=== PATIENT | female | born 1965 | race Caucasian/White ===

== ENCOUNTER 2017-10-22 14:46 | Emergency (ER) | payer MEDICAID, OTHER ==
[~2017-10-22] VITALS: Ht 162.6 cm; Wt 74.4 kg
[2017-10-22 14:48] VITALS: BP 129/77; PULSE 76; RESP 16; TEMP 98.3; O2SAT 100
[2017-10-22] MEDS ORDERED: ASPI-183 PO (15:06)
[2017-10-22] MEDS ORDERED: SODIUM CHLORIDE 0.9% FLUSH 10 ML FLUSH IVF PRN (15:15)
--- NOTE | 2017-10-22 15:22 | PD ---
HPI Chief Complaint: Dizziness Time Seen by Provider: 15:03 Travel History International Travel<30 days: No Contact w/Intl Traveler<30days: No Traveled to known affect area: No History of Present Illness HPI The patient is a 52-year-old female who presents to the emergency department for multiple complaints. The patient states she suffered a stroke 2 years ago when she was living in [place], [place]. The patient states she has full disability from her CVA and left with residual right sided weakness which has progressively gotten better since the stroke. She has been ambulatory. However, she does note intermittent dizziness for the last 2 years. She states she occasionally feels a sidhu from the back of the head to the front of the head, becomes lightheaded, dizzy, but denies any focal deficits with the intermittent dizziness. She does note the onset was 2 years ago after the stroke. She has not followed up with her primary physician in regards to intermittent dizziness. She denies any orthostatic changes, vertigo , chest pain, palpitations, shortness of breath, nausea, vomiting, or weakness. She also complains of superficial varicosities to lower extremities, does state her mother has had similar varicosities as well. She also notes a small red bump on the top of the right leg just inferior to the knee over the tibial tuberosity and feels like there may be a small cyst or lump over the affected area. She also thinks she may have been bit by an insect of the anterior aspect the left lower tibia where there is some erythema, however, this has moved to the medial aspect of the leg. She denies any significant edema to lower extremities and denies any recent travel, hospitalizations, or surgeries. She denies any history of previous DVT or PE. Symptoms are mild to moderate. PFSH Past Medical History Cerebrovascular Accident: Yes (2016) Influenza Vaccination: No ?: Not : 4 Para: 3 Past Surgical History Section: Yes (X3) Ear Surgery: Yes (WHEN PT WAS F[age]) Social History Alcohol Use: Yes (OCCAS) Tobacco Use: Yes (1 PPD CUTTING BACK) Substance Use: Yes Allergies-Medications (Allergen,Severity, Reaction): Coded Allergies: No Known Allergies (Unverified , 10/22/17) Reported Meds & Prescriptions Reported Meds & Active Scripts Active Reported Aspirin 325 Mg Tab 325 Mg PO DAILY Review of Systems Except as stated in HPI: all other systems reviewed are Neg Eyes: No: Blurred Vision HENT: Positive: Lightheadedness, No: Headaches, Vertigo Cardiovascular: No: Chest Pain or Discomfort, Palpitations, Irregular Rhythm, Tachycardia, Diaphoresis Respiratory: No: Shortness of Breath Gastrointestinal: No: Nausea, Vomiting, Abdominal Pain Musculoskeletal: Positive: Pain Skin: Positive Lumps, Positive Other (As noted in the history of present illness) Neurologic: Positive: Dizziness, Focal Abnormalities (History of right-sided weakness residual from CVA 2 years ago, denies any acute changes), No: Weakness , Change in Mentation, Slurred Speech, Paresthesia, Sensory Disturbance Endocrine: No: Heat Intolerance, Cold Intolerance Physical Exam Narrative GENERAL: Awake, alert, nontoxic-appearing 52-year-old female who appears her stated age and is in no acute respiratory distress. SKIN: Focused skin assessment warm/dry. HEAD: Atraumatic. Normocephalic. EYES: Pupils equal and round. Pupils are 3 mm bilateral and reactive. EOMs are intact. ENT: No nasal bleeding or discharge. Mucous membranes pink and moist. NECK: Trachea midline. No JVD. CARDIOVASCULAR: Regular rate and rhythm. No murmur appreciated. Heart rate in 70s. RESPIRATORY: No accessory muscle use. Clear to auscultation. Breath sounds equal bilaterally. GASTROINTESTINAL: Abdomen soft, non-tender, nondistended. MUSCULOSKELETAL: No obvious deformities. No clubbing. No cyanosis. No edema. Superficial varicosities noted to the left and right foot. The calves are soft , negative Homans sign. Small erythematous area 1 cm diameter of the anterior aspect the lower left tibia. Small 1 cm circular cystlike area over the right tibial tuberosity that appears to be mobile over the affected area, slightly painful, but no drainage. NEUROLOGICAL: Awake and alert. No obvious cranial nerve deficits. Motor grossly within normal limits. Normal speech. PSYCHIATRIC: Appropriate mood and affect; insight and judgment normal. Data Data Last Documented VS Vital Signs Date Time Temp Pulse Resp B/P (MAP) Pulse Ox O2 Delivery O2 Flow Rate FiO2 10/22/17 15:37 65 18 104/70 (81) 66 18 109/73 (85) 89 18 99/71 (80) 10/22/17 15:32 98 Room Air 10/22/17 14:48 98.3 Orders Orders Electrocardiogram (10/22/17 15:13) Complete Blood Count With Diff (10/22/17 15:13) Comprehensive Metabolic Panel (10/22/17 15:13) Magnesium (Mg) (10/22/17 15:13) Ecg Monitoring (10/22/17 15:13) Iv Access Insert/Monitor (10/22/17 15:13) Oximetry (10/22/17 15:13) Sodium Chloride 0.9% Flush (Ns Flush) (10/22/17 15:15) Orthostatic Vital Signs (10/22/17 15:13) Sodium Chlor 0.9% 1000 Ml Inj (Ns 1000 M (10/22/17 15:45) Labs Laboratory Tests Test 10/22/17 15:25 White Blood Count 6.8 TH/MM3 Red Blood Count 4.66 MIL/MM3 Hemoglobin 13.8 GM/DL Hematocrit 41.0 % Mean Corpuscular Volume 87.9 FL Mean Corpuscular Hemoglobin 29.5 PG Mean Corpuscular Hemoglobin Concent 33.5 % Red Cell Distribution Width 12.4 % Platelet Count 334 TH/MM3 Mean Platelet Volume 7.8 FL Neutrophils (%) (Auto) 44.5 % Lymphocytes (%) (Auto) 45.4 % Monocytes (%) (Auto) 7.0 % Eosinophils (%) (Auto) 2.5 % Basophils (%) (Auto) 0.6 % Neutrophils # (Auto) 3.0 TH/MM3 Lymphocytes # (Auto) 3.1 TH/MM3 Monocytes # (Auto) 0.5 TH/MM3 Eosinophils # (Auto) 0.2 TH/MM3 Basophils # (Auto) 0.0 TH/MM3 CBC Comment DIFF FINAL Differential Comment Blood Urea Nitrogen 8 MG/DL Creatinine 0.69 MG/DL Random Glucose 89 MG/DL Total Protein 7.8 GM/DL Albumin 3.9 GM/DL Calcium Level 9.0 MG/DL Magnesium Level 2.3 MG/DL Alkaline Phosphatase 95 U/L Aspartate Amino Transf (AST/SGOT) 13 U/L Alanine Aminotransferase (ALT/SGPT) 18 U/L Total Bilirubin 0.3 MG/DL Sodium Level 140 MEQ/L Potassium Level 3.5 MEQ/L Chloride Level 105 MEQ/L Carbon Dioxide Level 30.8 MEQ/L Anion Gap 4 MEQ/L Estimat Glomerular Filtration Rate 89 ML/MIN [facility] Medical Decision Making Medical Screen Exam Complete: Yes Emergency Medical Condition: Yes Medical Record Reviewed: Yes Interpretation(s) EKG reveals normal sinus rhythm with a rate of 64. No ischemic changes or ectopy noted. Laboratory Tests Test 10/22/17 15:25 White Blood Count 6.8 TH/MM3 Red Blood Count 4.66 MIL/MM3 Hemoglobin 13.8 GM/DL Hematocrit 41.0 % Mean Corpuscular Volume 87.9 FL Mean Corpuscular Hemoglobin 29.5 PG Mean Corpuscular Hemoglobin Concent 33.5 % Red Cell Distribution Width 12.4 % Platelet Count 334 TH/MM3 Mean Platelet Volume 7.8 FL Neutrophils (%) (Auto) 44.5 % Lymphocytes (%) (Auto) 45.4 % Monocytes (%) (Auto) 7.0 % Eosinophils (%) (Auto) 2.5 % Basophils (%) (Auto) 0.6 % Neutrophils # (Auto) 3.0 TH/MM3 Lymphocytes # (Auto) 3.1 TH/MM3 Monocytes # (Auto) 0.5 TH/MM3 Eosinophils # (Auto) 0.2 TH/MM3 Basophils # (Auto) 0.0 TH/MM3 CBC Comment DIFF FINAL Differential Comment Blood Urea Nitrogen 8 MG/DL Creatinine 0.69 MG/DL Random Glucose 89 MG/DL Total Protein 7.8 GM/DL Albumin 3.9 GM/DL Calcium Level 9.0 MG/DL Magnesium Level 2.3 MG/DL Alkaline Phosphatase 95 U/L Aspartate Amino Transf (AST/SGOT) 13 U/L Alanine Aminotransferase (ALT/SGPT) 18 U/L Total Bilirubin 0.3 MG/DL Sodium Level 140 MEQ/L Potassium Level 3.5 MEQ/L Chloride Level 105 MEQ/L Carbon Dioxide Level 30.8 MEQ/L Anion Gap 4 MEQ/L Estimat Glomerular Filtration Rate 89 ML/MIN Differential Diagnosis Differential diagnosis includes superficial varicosities, post CVA dizziness, orthostatic dizziness, hypocalcemia, hyponatremia, dehydration, arrhythmia, lipoma, cyst. Narrative Course IV was established, labs are drawn and sent, and the patient was placed on cardiac telemetry monitoring and continuous pulse oximetry monitoring. EKG was ordered and interpreted. Orthostatic vital signs were obtained. Orthostatic vital signs do reveal an increased heart rate of greater than 20 bpm with standing, however, systolic only fell from 106-99. Therefore, patient was administered 1 L of IV fluids. CBC and CMP are unremarkable. I did review the EMR, the patient has one previous visit in March 2017 for alcohol intoxication with an alcohol level of 294 at that time. No evidence of intoxication today. The patient is advised to follow-up with a primary physician on an outpatient basis. Return if symptoms worsen or progress. Diagnosis Primary Impression: Dizziness Additional Impression: Leg pain Qualified Codes: M79.604 - Pain in right leg; M79.605 - Pain in left leg Patient Instructions: General Instructions Additional Instructions: Please provide the patient a copy of her labs and EKG at discharge. Follow-up with a primary physician. Med/Other Pt SpecificInfo: No Change to Meds Disposition: 01 DISCHARGE HOME Condition: Stable Michele Chaney MD October 22, 2017 15:22
[2017-10-22 15:32] VITALS: RESP 18; O2SAT 98
[2017-10-22 15:32] LABS: BASOPHIL % 0.6 % (0.0-2.0); EOSINOPHIL # 0.2 TH/MM3 (0-0.4); EOSINOPHIL % 2.5 % (0.0-4.0); HEMOGLOBIN 13.8 GM/DL (11.6-15.3); LYMPH % 45.4 % (9.0-44.0); LYMPHOCYTE # 3.1 TH/MM3 (1.0-4.8); MEAN CELL VOLUME 87.9 FL (80.0-100.0); MEAN CORPUSCULAR HEMOGLOBIN 29.5 PG (27.0-34.0); MEAN CORPUSCULAR HGB CONC 33.5 % (32.0-36.0); MEAN PLATELET VOLUME 7.8 FL (7.0-11.0); MONOCYTE # 0.5 TH/MM3 (0-0.9); NEUT % 44.5 % (16.0-70.0); PLATELET COUNT 334 TH/MM3 (150-450); RED BLOOD COUNT 4.66 MIL/MM3 (4.00-5.30); RED CELL DISTRIBUTION WIDTH 12.4 % (11.6-17.2); WHITE BLOOD COUNT 6.8 TH/MM3 (4.0-11.0)
[2017-10-22 15:37] VITALS: BP_SYST 104; BP_SYST 109; BP_SYST 99; BP_DIAS 70; BP_DIAS 71; BP_DIAS 73; RESP 18
[2017-10-22 15:43] LABS: CHLORIDE 105 MEQ/L (98-107); SODIUM (NA) 140 MEQ/L (136-145)
[2017-10-22] MEDS ORDERED: SODIUM CHLOR 0.9% 1000 ML INJ 1,000 ML IV ONE (15:45)
[2017-10-22 15:46] LABS: ALBUMIN 3.9 GM/DL (3.4-5.0)
[2017-10-22 15:47] LABS: BICARBONATE 30.8 MEQ/L (21.0-32.0); BLOOD UREA NITROGEN 8 MG/DL (7-18); GLUCOSE,RANDOM 89 MG/DL (74-106); MAGNESIUM 2.3 MG/DL (1.5-2.5)
[2017-10-22 15:49] LABS: ALT (GPT) 18 U/L (10-53)
[2017-10-22 15:50] LABS: AST (GOT) 13 U/L (15-37); CREATININE 0.69 MG/DL (0.50-1.00); GLOMERULAR FILTRATION RATE 89 ML/MIN (>89)
[2017-10-22 15:51] LABS: TOTAL BILIRUBIN ADULT 0.3 MG/DL (0.2-1.0); TOTAL PROTEIN 7.8 GM/DL (6.4-8.2)
[2017-10-22 15:52] LABS: ALKALINE PHOSPHATASE 95 U/L (45-117)
[2017-10-22 16:11] VITALS: BP 104/71; PULSE 66; RESP 16; O2SAT 99
--- NOTE | 2017-10-24 12:04 | EKG ---
Date Performed: 10/22/2017 Time Performed: 15:41:58 PTAGE: 52 years EKG: Sinus rhythm NORMAL ECG NO PREVIOUS TRACING DOCTOR: Cynthia Schumacher Interpretating Date/Time 10/24/2017 11:54:32
== END 2017-10-22 16:20 | disposition home or self-care (01) ==
LOC: PHED 14:46
DX: R42 Dizziness and giddiness (principal); M79.604 Pain in right leg; M79.605 Pain in left leg; I83.92 Asymptomatic varicose veins of left lower extremity; I69.951 Hemiplegia and hemiparesis following unspecified cerebrovascular disease affecting right dominant side; F17.200 Nicotine dependence, unspecified, uncomplicated; Z79.82 Long term (current) use of aspirin
CPT/HCPCS: 80053; 83735; 85025; 93005; 99284; J7030